=== PATIENT | male | born 1960 | race American Indian/Alaskan Native ===

== ENCOUNTER 2018-07-19 21:21 | Emergency (ER) | payer BC ==
[2018-07-19 21:39] VITALS: TEMP 97; O2SAT 100
--- NOTE | 2018-07-19 22:09 | ED PDOC ---
Arrival/HPI - General Chief Complaint: Substance Abuse Time Seen by Provider: 07/19/18 21:21 Historian: Patient, Family (partner), EMS - History of Present Illness Narrative History of Present Illness (Text): 07/19/18 22:06 58 year old male, with no significant past medical history, presents to the emergency department by EMS for alcohol intoxication and possible opiate drug use. As per history obtained from EMS and patient's partner, who called EMS, patient was noted to be poorly responsive. EMS states patient was administered narcan on a couple of occasions, and only responded after the 2nd dose. Patient is currently awake and aler. Patient admits to drinking heavily this evening only. Patient states he was sleeping and doesn't understand why EMS was called. Patient adamantly denies any opiate or drug use. Patient insists he feels fine now. Patient denies any fevers, chills, headache, dizziness, chest pain, shortness of breath, cough, abdominal pain, nausea, vomiting, diarrhea, back pain, neck pain, urinary/bowel changes, or any other complaint. Time/Duration: Prior to Arrival Context: Home Past Medical History - Provider Review Nursing Documentation Reviewed: Yes - Infectious Disease Hx of Infectious Diseases: None - Psychiatric Hx Substance Use: No - Anesthesia Hx Anesthesia: No Family/Social History - Physician Review Nursing Documentation Reviewed: Yes Family/Social History: No Known Family HX Smoking Status: Current Some Days Smoker Hx Alcohol Use: Yes Hx Substance Use: No Allergies/Home Meds Allergies/Adverse Reactions: Allergies No Known Allergies Allergy (Verified 07/19/18 21:28) Home Medications: Home Meds Medication Instructions Recorded Confirmed No Known Home Med 07/19/18 07/19/18 Review of Systems - Physician Review All systems were reviewed & negative as marked: Yes - Review of Systems Constitutional: absent: Fevers, Night Sweats Respiratory: absent: SOB, Cough Cardiovascular: absent: Chest Pain Gastrointestinal: absent: Abdominal Pain, Diarrhea, Nausea, Vomiting Genitourinary Male: absent: Urinary Output Changes Musculoskeletal: absent: Back Pain, Neck Pain Neurological: absent: Headache, Dizziness Physical Exam Vital Signs Reviewed: Yes Vital Signs Temp Pulse Resp BP Pulse Ox 07/19/18 21:30 97 F L 121 H 17 145/82 100 Temperature: Hypothermic Blood Pressure: Normal Pulse: Tachycardic Respiratory Rate: Normal Appearance: Positive for: Well-Appearing, Non-Toxic, Comfortable Pain Distress: None Mental Status: Positive for: Alert and Oriented X 3 - Systems Exam Head: Present: Atraumatic, Normocephalic Pupils: Present: PERRL Extroacular Muscles: Present: EOMI Conjunctiva: Present: Normal Mouth: Present: Moist Mucous Membranes Neck: Present: Normal Range of Motion Respiratory/Chest: Present: Clear to Auscultation, Good Air Exchange. No: Respiratory Distress, Accessory Muscle Use Cardiovascular: Present: Regular Rate and Rhythm, Normal S1, S2. No: Murmurs Abdomen: No: Tenderness, Distention, Peritoneal Signs Back: Present: Normal Inspection Upper Extremity: Present: Normal Inspection. No: Cyanosis, Edema Lower Extremity: Present: Normal Inspection. No: Edema Neurological: Present: GCS=15, CN II-XII Intact, Speech Normal Skin: Present: Warm, Dry, Normal Color. No: Rashes Psychiatric: Present: Alert, Oriented x 3, Normal Insight, Normal Concentration Medical Decision Making ED Course and Treatment: 07/19/18 22:11 Impression: 58 year old male presents with substance abuse/overdose. Plan: -- Reassess and disposition Prior Visits: Notes and results from previous visits were reviewed. Progress Notes: 07/19/18 22:11 Patient adamantly refuses to undergo any testing here in the emergency department, stating he feels fine, and insists that he wants to leave. Patient is awake, alert, orientedX3, and understands fully the risks in leaving, including the possibility of . Patient's partner is present and she states that she will accompany him home and assume responsibility. Patient has gotten off the stretcher and began immediately dressing himself. Patient states that he will sign out AMA, along with a signature from his partner. - Scribe Statement The provider has reviewed the documentation as recorded by the Scribdeidre De Luna Provider Scribe Attestation: All medical record entries made by the Scribe were at my direction and personally dictated by me. I have reviewed the chart and agree that the record accurately reflects my personal performance of the history, physical exam, medical decision making, and the department course for this patient. I have also personally directed, reviewed, and agree with the discharge instructions and disposition. Disposition/Present on Arrival - Present on Arrival Any Indicators Present on Arrival: No History of DVT/PE: No History of Uncontrolled Diabetes: No Urinary Catheter: No History of Decub. Ulcer: No History Surgical Site Infection Following: CABG - Mediastinitis, None - Disposition Have Diagnosis and Disposition been Completed?: Yes Diagnosis: Alcohol intoxication Disposition: AGAINST MEDICAL ADVICE Disposition Time: 22:16 Condition: STABLE Referrals: FAMILY PROVIDER,NO [Primary Care Provider] - Follow up with primary Forms: [employer] (Guamanian)
[2018-07-20 03:09] VITALS: BP 135/82; PULSE 97; RESP 18
== END 2018-07-19 22:00 | disposition left against medical advice (07) ==
LOC: MERGE 21:21 → ED 21:21
DX: F10.129 Alcohol abuse with intoxication, unspecified (principal)

== ENCOUNTER 2018-11-20 13:01 | Emergency (ER) | payer BC ==
[2018-11-20 13:04] VITALS: BMI 28.0
[2018-11-20 13:16] VITALS: TEMP 98.5
[2018-11-20] MEDS ORDERED: Labetalol 5mg/ml (4ml) IVP ONE (13:48)
[2018-11-20] MEDS ORDERED: Sodium Chloride 0.9% 1,000 ML IV STA (14:03)
--- NOTE | 2018-11-20 14:04 | ED PDOC ---
Arrival/HPI - General Chief Complaint: Headache Time Seen by Provider: 11/20/18 13:12 Historian: Patient - History of Present Illness Narrative History of Present Illness (Text): 11/20/18 13:56 58 year old male with no significant past medical history presents to the Emergency Department for evaluation of elevated BP, with associated left sided throbbing headache and dizziness x 1 week. Patient reports he was walking up the stairs at work when he felt "off balance" this morning. He endorses seeing a nurse at work, where his BP was found to be "in the 200s", prompting him to visit the Emergency Department. He also endorses taking Excedrin for his headache, with slight relief. Patient currently informs improved symptoms denies any chills, nausea, vomiting, SOB, LOC, abdominal pain, numbness or tingling in his fingers. Patient also denies seeing his PMD regularly. Time/Duration: 24 hours Symptom Onset: Gradual Symptom Course: Unchanged Activities at Onset: Light Context: Work Past Medical History - Provider Review Nursing Documentation Reviewed: Yes - Infectious Disease Hx of Infectious Diseases: None - Psychiatric Hx Substance Use: No - Anesthesia Hx Anesthesia: No Family/Social History - Physician Review Nursing Documentation Reviewed: Yes Family/Social History: Unknown Family HX Smoking Status: Current Some Days Smoker Hx Alcohol Use: Yes Hx Substance Use: No Allergies/Home Meds Allergies/Adverse Reactions: Allergies No Known Allergies Allergy (Verified 07/20/18 09:11) Review of Systems - Physician Review All systems were reviewed & negative as marked: Yes - Review of Systems Constitutional: absent: Fevers Respiratory: absent: SOB, Cough Cardiovascular: absent: Chest Pain, Syncope Gastrointestinal: absent: Abdominal Pain, Diarrhea, Nausea, Vomiting Musculoskeletal: absent: Back Pain, Neck Pain Neurological: Headache (left sided ), Dizziness Endocrine: absent: Diaphoresis Physical Exam Vital Signs Reviewed: Yes Vital Signs Temp Pulse Resp BP Pulse Ox 11/20/18 13:02 98.5 F 91 H 18 185/98 H 96 Temperature: Afebrile Blood Pressure: Hypertensive Pulse: Regular Respiratory Rate: Normal Appearance: Positive for: Well-Appearing Pain Distress: None Mental Status: Positive for: Alert and Oriented X 3 - Systems Exam Head: Present: Atraumatic, Normocephalic Pupils: Present: PERRL Extroacular Muscles: Present: EOMI Conjunctiva: Present: Normal Respiratory/Chest: Present: Clear to Auscultation, Good Air Exchange. No: Respiratory Distress, Accessory Muscle Use Cardiovascular: Present: Regular Rate and Rhythm, Normal S1, S2. No: Murmurs Abdomen: No: Tenderness, Distention, Peritoneal Signs Upper Extremity: Present: Normal Inspection. No: Cyanosis, Edema Lower Extremity: Present: Normal Inspection. No: Edema Neurological: Present: GCS=15, Speech Normal Skin: Present: Warm, Dry, Normal Color. No: Rashes Psychiatric: Present: Alert, Oriented x 3, Normal Insight, Normal Concentration Medical Decision Making ED Course and Treatment: 11/20/18 14:06 Impression: 58 year old male presents to the Emergency Department complaining of a left sided throbbing headache, with dizziness x 1 week. Differential Diagnosis included but are not limited to: Plan: -- Basic labs -- IV Fluids -- UA -- Reglan -- Trandate -- Toradol -- Reassess and disposition Prior Visits: Notes and results from previous visits were reviewed. Progress Notes: - Lab Interpretations Lab Results: 11/20/18 14:20 11/20/18 14:20 Lab Results 11/20/18 14:20: Sodium 134, Potassium 3.6, Chloride 101, Carbon Dioxide 28, Anion Gap 9 L, BUN 7, Creatinine 0.7 L, Est GFR ( Amer) > 60, Est GFR (Non-Af Amer) > 60, Random Glucose 98, Calcium 9.1, Magnesium 1.6 L, Total Bilirubin 1.0, AST 142 H, ALT 30, Alkaline Phosphatase 121, Troponin I 0.01, Total Protein 9.3 H, Albumin 3.7, Globulin 5.6, Albumin/Globulin Ratio 0.7 L 11/20/18 14:20: Urine Color Yellow, Urine Appearance Clear, Urine pH 7.0, Ur Specific [place] 1.010, Urine Protein Negative, Urine Glucose (UA) Negative, Urine Ketones Negative, Urine Blood Negative, Urine Nitrate Negative, Urine Bilirubin Negative, Urine Urobilinogen 0.2, Ur Leukocyte Esterase Trace H, Urine RBC 0 - 2, Urine WBC 2 - 5, Ur Epithelial Cells None, Urine Bacteria Few 11/20/18 14:20: WBC 4.2 L, RBC 3.58, Hgb 12.2 L, Hct 35.8 L, MCV 100.0, MCH 34.1, MCHC 34.1, RDW 13.3, Plt Count 69 L, MPV 10.6, Neut % (Auto) 48.7 L, Lymph % (Auto) 39.7 H, [place] % (Auto) 10.4 H, Eos % (Auto) 0.7 L, Baso % (Auto) 0.5, Lymph # (Auto) 1.7, [place] # (Auto) 0.4, Eos # (Auto) 0.0, Baso # (Auto) 0.02, Absolute Neuts (auto) 2.06 I have reviewed the lab results: Yes - Medication Orders Current Medication Orders: Discontinued Medications Labetalol HCl (Trandate) 20 mg IVP STAT ONE Stop: 11/20/18 13:49 - Scribe Statement The provider has reviewed the documentation as recorded by the Scribe Matt Hernandez, training with Caitlyn Kelly. All medical record entries made by the Scribe were at my direction and personally dictated by me. I have reviewed the chart and agree that the record accurately reflects my personal performance of the history, physical exam, medical decision making, and the department course for this patient. I have also personally directed, reviewed, and agree with the discharge instructions and disposition. Disposition/Present on Arrival - Present on Arrival Any Indicators Present on Arrival: No History of DVT/PE: No History of Uncontrolled Diabetes: No Urinary Catheter: No History of Decub. Ulcer: No History Surgical Site Infection Following: None - Disposition Have Diagnosis and Disposition been Completed?: Yes Diagnosis: Hypertensive urgency Disposition: HOME/ ROUTINE Disposition Time: 16:48 Patient Plan: Discharge Condition: IMPROVED Discharge Instructions (ExitCare): High Blood Pressure (DC) Print Language: KAZAKH Additional Instructions: All medical record entries made by the Scribe were at my direction and personally dictated by me. I have reviewed the chart and agree that the record accurately reflects my personal performance of the history, physical exam, medical decision making, and the department course for this patient. I have also personally directed, reviewed, and agree with the discharge instructions and disposition. Please take your medication as prescribed Prescriptions: amLODIPine [Norvasc] 10 mg PO DAILY #30 tab Referrals: Jackie Mcgrath MD [Medical Doctor] - Follow up with primary [facility] at [facility] [Outside] - Follow up with primary Forms: [employer] (Korean)
[2018-11-20 14:27] LABS: BASO # 0.02 K/mm3 (0.0-2.0); BASO % 0.5 % (0.0-3.0); EOS % 0.7 % (1.5-5.0); HEMOGLOBIN 12.2 g/dL (14.0-18.0); LYMPH # 1.7 (1.2-3.4); LYMPH % 39.7 % (22.0-35.0); MEAN CORPUSCULAR HEMOGLOBIN 34.1 pg (25.0-35.0); MEAN CORPUSCULAR HGB CONC 34.1 g/dl (31.0-37.0); MEAN PLATELET VOLUME 10.6 fl (7.0-11.0); MONO # 0.4 (0.1-0.6); MONO % 10.4 % (1.0-6.0); RBC 3.58 10^6/uL (3.5-6.1); RED CELL DISTRIBUTION WIDTH 13.3 % (11.5-14.5); WHITE BLOOD COUNT 4.2 10^3/uL (4.5-11.0)
[2018-11-20 14:32] LABS: URINE BILIRUBIN NEGATIVE (NEGATIVE); URINE BLOOD NEGATIVE (NEGATIVE); URINE GLUCOSE (UA) NEGATIVE (NEGATIVE); URINE LEUKOCYTE ESTERASE TRACE Leu/uL (NEGATIVE); URINE PROTEIN NEGATIVE mg/dL (<30 mg/dL); URINE UROBILINOGEN 0.2 E.U./dL (<1 E.U./dL)
[2018-11-20 14:35] LABS: ALB/GLOB RATIO 0.7 (1.1-1.8); ALBUMIN 3.7 g/dL (3.0-4.8); ALT/SGPT 30 U/L (7-56); AST/SGOT 142 U/L (17-59); BLOOD UREA NITROGEN 7 mg/dL (7-21); CALCIUM 9.1 mg/dL (8.4-10.5); GFR NON-AFRICAN AMERICAN > 60
[2018-11-20 14:44] LABS: URINE APPEARANCE CLEAR (CLEAR); URINE COLOR YELLOW (YELLOW)
[2018-11-20 14:46] LABS: TROPONIN I 0.01 ng/mL
[2018-11-20 14:53] LABS: URINE BACTERIA FEW /hpf; URINE RBC 0 - 2 /hpf (0-2)
[2018-11-20 16:03] VITALS: BP 152/94; PULSE 78; RESP 16; O2SAT 98
== END 2018-11-20 16:57 | disposition home or self-care (01) ==
LOC: ED 13:01
DX: I16.0 Hypertensive urgency (principal)
CPT/HCPCS: 80053; 81001; 83735; 84484; 85025; 87086; 96374; 96375; 99285; J1885; J2765; J7030

== ENCOUNTER 2019-01-16 14:29 | Outpatient (CLI) | payer BC | END 2019-01-16 14:30 | disposition home or self-care (01) | LOC: LAB 14:29 ==

== ENCOUNTER 2019-01-17 16:55 | Outpatient (CLI) | payer BC | END 2019-01-17 16:56 | disposition home or self-care (01) | LOC: LAB 16:55 ==